=== PATIENT | male | born 1955 | race Caucasian/White ===

== ENCOUNTER → 2022-10-15 07:42 | Outpatient (CLI) | payer MEDICARE, OTHER, SELFPAY ==
[2022-10-15 08:47] LABS: Add Manual Diff / Slide Review NO; Basophils Absolute Auto 0 /uL (0-100); Basophils Percent Auto 0.8 % (0-2); Eosinophils Absolute Auto 100 /uL (0-450); Eosinophils Percent Auto 3.2 % (2-4); Hematocrit 44.6 % (41-53); Hemoglobin 15.7 g/dL (13.5-17.5); Lymphocytes Absolute Auto 1400 /uL (1100-4500); Lymphocytes Percent Auto 31.4 % (25-40); Mean Corpuscular HGB Conc 35.1 % (30-36); Mean Corpuscular Hemoglobin 32.3 PG (26-34); Mean Corpuscular Volume 91.9 fL (80-100); Monocytes Absolute Auto 500 /uL (0-900); Monocytes Percent Auto 11.2 % (3-14); Neutrophils Absolute Auto 2300 /uL (1500-7000); Neutrophils Percent Auto 53.4 % (50-75); Platelet Count 157 X10^3/uL (150-400); Red Blood Cell Count 4.85 X10^6/uL (4.5-5.9); Red Cell Distribution Width 12.9 % (11.6-14.8); White Blood Cell Count 4.4 X10^3/uL (4.5-11.0)
[2022-10-15 08:54] LABS: Alanine Aminotransferase 27 IU/L (<50); Albumin 3.9 g/dL (3.5-5.0); Albumin Globulin Ratio 1.5 (1.0-2.8); Alkaline Phosphatase 64 U/L (38-126); Aspartate Aminotransferase 30 IU/L (17-59); BUN Creatinine Ratio 18.1 (6-22); Bilirubin Total 0.8 mg/dL (0.2-1.3); Blood Urea Nitrogen 17 mg/dL (9-20); Calcium 9.3 mg/dL (8.4-10.2); Carbon Dioxide 27 mmol/L (22-32); Chloride 104 mmol/L (98-107); Cholesterol 206 mg/dL (140-199); Estimated Glomerular Filt Rate > 60 mL/min (>60); Globulin 2.6 g/dL (1.7-4.1); Glucose 101 mg/dL (80-110); HDL Cholesterol 54 mg/dL (40-60); HEMOLYSIS < 15 (0-50); LDL Cholesterol Calculated 136 mg/dL (<100); Potassium 4.5 mmol/L (3.4-5.1); Sodium 136 mmol/L (137-145); Total Protein 6.5 g/dL (6.3-8.2); Triglycerides 82 mg/dL (35-150)
[2022-10-15 09:23] LABS: Prostate Specific Antigen 3.83 ng/mL (0.10-4.00)
== END ==
PROVIDERS: PCP Family Medicine; Referring Provider Family Medicine; Visit Provider Family Medicine
DX: N52.9 Male erectile dysfunction, unspecified (principal); Z12.5 Encounter for screening for malignant neoplasm of prostate; Z13.9 Encounter for screening, unspecified; Z13.6 Encounter for screening for cardiovascular disorders
CPT/HCPCS: 36415; 80053; 80061; 84153; 85025; G0103

== ENCOUNTER 2023-03-23 09:38 | Day surgery (SDC) | payer MEDICARE, OTHER, SELFPAY ==
--- NOTE | 2023-03-23 | PATH_ITS ---
[facility] Accession Number: [id number] No. of containers..01 Tissue . 01 Material submitted: . colon - ASCENDING COLON POLYP . 01 Diagnosis: Ascending Colon Polyp, Biopsy: Tubular adenoma. PENDING SALE TO [facility] 03/30/2023 1509 Local . 01 Electronically signed: . Dorothy Fournier MD, Pathologist NPI- [id number] . 01 Gross description: . ASCENDING COLON POLYP: Received in formalin is 4 fragment(s) of martinez, soft tissue measuring 0.5 x 0.3 x 0.2 cm to 0.2 x 0.1 x 0.1 cm submitted entirely in 1 cassette(s) /AAY 03/24/2023 0514 Local . 01 Pathologist provided ICD-10: D12.2 . 01 CPT . 287607 Specimen Comment: A courtesy copy of this report has been sent to [phone] Performed at: 01 [facility] [address] [place] [address], [place], [place] [id number] MD London Mujica MD Phone: [phone]
[2023-03-23 09:54] VITALS: BP 138/95; PULSE 97; RESP 16; TEMP 36.1; O2SAT 98; BMI 36.2
--- NOTE | 2023-03-23 10:02 | PM.HP.1 ---
History of Present Illness History of Present Illness Date Patient Seen: 03/23/23 Time Patient Seen: 10:02 Chief complaint: SDC Narrative: Daniel is a 67-year-old man who is here for colonoscopy. He has had 2 colonoscopies in the past where polyps were removed. The first 1 was in 2017 and multiple polyps removed. The last 1 was in 2018 and only 1 tubular adenoma was found. It was less than 1 cm. His dad from colon cancer in his 90s. [facility] Medical History (Updated 10/24/22 @ 11:54 by Lawrence Russell DO) Actinic keratoses Anxiety BCC (basal cell carcinoma of skin) (~2014) BMI 36.0-36.9,adult Chicken pox (~1983) Cognitive changes Erectile dysfunction Herpes (~2015) Hx of basal cell carcinoma Hx of colonic polyps (~2016) Scalp laceration Surgical History (Updated 04/12/22 @ 21:26 by Fabiola Crawford) Anesthesia History of tonsillectomy (~1964) Family History (Updated 04/12/22 @ 21:37 by Fabiola Crawford) Father Cancer Mother Parkinson's disease Brother Parkinson's disease Grandfather History of heart attack Social History Smoking Status: Never smoker Meds Home Medications and Allergies Home Medications Medication Instructions Recorded Confirmed Type sodium,potassium,mag sulfates 17.5 See Rx Instructions PO .COMPLEX 02/02/23 Rx gram-3.13 gram-1.6 gram oral soln #354 mL (Suprep Bowel Prep Kit) sildenafil 50 mg tablet 50 mg PO DAILY #30 tabs 02/14/23 03/23/23 Rx Allergies Allergy/AdvReac Type Severity Reaction Status Date / Time No Known Drug Allergies Allergy Verified 03/23/23 09:52 Exam Const General: healthy appearing Assessment & Plan Assessment and plan (1) Hx of colonic polyps: Status: Acute Plan We reviewed the risks of colonoscopy for colon cancer screening and he would like to proceed.
[2023-03-23] MEDS: LACTATED RINGERS 1,000 ML 42 ML IV (10:05)
--- NOTE | 2023-03-23 10:30 | PM.OP.COLON ---
Operative Date/Time/Diagnoses Date of procedure: 03/23/23 Time of procedure: 10:30 Pre-op diagnosis: History of polyps Post-op diagnosis: same Procedure & Clinicians Study performed: Colonoscopies Same procedure as scheduled: Yes Surgeon: Janes Weaver Procedure Notes Procedure in detail: Surgeon: Janes Weaver MD Anesthesia: Helen Marley CRNA Procedure: The patient was brought to the endoscopy suite, placed in left lateral decubitus position. The patient was connected to monitoring devices. A time-out was performed. Sedation was administered. Once the patient was adequately sedated, a digital rectal exam was performed and was normal. The scope was then inserted and advanced to the cecum where the appendiceal orifice was identified and photographed. The scope was then slowly withdrawn over greater than 6 minutes. The mucosa was thoroughly inspected. There was a 7 mm polyp in the ascending colon removed with a cold snare. The scope was retroflexed in the rectum. No other abnormalities were seen. The scope was straightened and removed. The patient was awakened and brought to recovery. Scope withdrawal time: 10 minutes Sedation time: 13 minutes EBL: 2 mL Findings: 7 mm polyp in the ascending colon Post-procedure Disposition: PACU
[2023-03-23 10:32] VITALS: BP 106/73; PULSE 79; RESP 18; TEMP 36.1; O2SAT 90
[2023-03-23 10:37] VITALS: BP 110/81; PULSE 77; RESP 16; O2SAT 93
[2023-03-23 10:42] VITALS: BP 115/87; PULSE 85; RESP 12; O2SAT 94
[2023-03-23 10:47] VITALS: BP 119/82; PULSE 81; RESP 20; TEMP 36.6; O2SAT 94
[2023-03-23 10:48] VITALS: BP 126/89; PULSE 79; RESP 20; TEMP 36.1; O2SAT 94
== END 2023-03-23 11:14 | disposition home or self-care (01) ==
PROVIDERS: PCP Family Medicine; Referring Provider Surgery; Visit Provider Surgery
PROC: 0DJD8ZZ Inspection of Lower Intestinal Tract, Via Natural or Artificial Opening Endoscopic (ICD-10-PCS; CPT 45378; principal; 2023-03-23 10:45)
DX: Z12.11 Encounter for screening for malignant neoplasm of colon (principal); Z86.010 Personal history of colon polyps; D12.2 Benign neoplasm of ascending colon
CPT/HCPCS: 45385; J2704

== ENCOUNTER → 2023-11-27 11:44 | Outpatient (CLI) | payer MEDICARE, OTHER, SELFPAY ==
[2023-11-27 12:15] LABS: Add Manual Diff / Slide Review NO; Basophils Absolute Auto 0 /uL (0-100); Basophils Percent Auto 0.7 % (0-2); Eosinophils Absolute Auto 0 /uL (0-450); Eosinophils Percent Auto 0.6 % (2-4); Hematocrit 45.7 % (41-53); Lymphocytes Absolute Auto 1500 /uL (1100-4500); Mean Corpuscular HGB Conc 34.9 % (30-36); Mean Corpuscular Hemoglobin 32.9 PG (26-34); Mean Corpuscular Volume 94.1 fL (80-100); Monocytes Absolute Auto 400 /uL (0-900); Neutrophils Absolute Auto 3800 /uL (1500-7000); Neutrophils Percent Auto 65.7 % (50-75); Platelet Count 204 X10^3/uL (150-400); Red Blood Cell Count 4.86 X10^6/uL (4.5-5.9); Red Cell Distribution Width 13.4 % (11.6-14.8); White Blood Cell Count 5.7 X10^3/uL (4.5-11.0)
[2023-11-27 12:31] LABS: BUN Creatinine Ratio 13.7 (6-22); Blood Urea Nitrogen 13 mg/dL (9-20); Calcium 9.6 mg/dL (8.4-10.2); Carbon Dioxide 23 mmol/L (22-32); Chloride 108 mmol/L (98-107); Cholesterol 214 mg/dL (140-199); Estimated Glomerular Filt Rate > 60 mL/min (>60); Glucose 88 mg/dL (80-110); HDL Cholesterol 53 mg/dL (40-60); HEMOLYSIS < 15 (0-50); LDL Cholesterol Calculated 141 mg/dL (<100); Potassium 4.2 mmol/L (3.4-5.1); Sodium 138 mmol/L (137-145); Triglycerides 102 mg/dL (35-150)
== END ==
PROVIDERS: PCP Family Medicine; Referring Provider Family Medicine; Visit Provider Family Medicine
DX: Z12.5 Encounter for screening for malignant neoplasm of prostate (principal); Z68.36 Body mass index [BMI] 36.0-36.9, adult; E78.5 Hyperlipidemia, unspecified
CPT/HCPCS: 36415; 80048; 80061; 85025; G0103

== ENCOUNTER → 2023-12-12 13:17 | Outpatient (CLI) | payer MEDICARE, OTHER, SELFPAY | PROVIDERS: PCP Family Medicine; Referring Provider Family Medicine; Visit Provider Family Medicine | DX: E78.5 Hyperlipidemia, unspecified (principal); R53.83 Other fatigue; R06.02 Shortness of breath | CPT/HCPCS: 94060; 94726; 94729 ==

== ENCOUNTER → 2024-01-26 08:45 | Outpatient (CLI) | payer MEDICARE, OTHER, SELFPAY ==
--- NOTE | 2024-01-26 08:47 | DI.MRI.S_ITS ---
PROCEDURE: MR PELVIC PROSTATE PROTOCOL INDICATIONS: Elevated PSA TECHNIQUE: Coronal HASTE, axial T1 FSE with fat saturation, 3-plane nonbreath-hold T2 FSE. After the administration of contrast, dynamic axial, delayed axial and coronal VIBE or 2-D FLASH with fat saturation through the pelvis. Diffusion weighted imaging and ADC was performed. COMPARISON: None. FINDINGS: Image quality: Diffusion weighted and dynamic contrast enhanced images are diagnostic. Prostate: Gland size is 4.0 x 5.2 x 4.6 cm; ellipsoid gland volume is 49.8 mL. Given PSA of 7.4, PSA density is 0.15. There is slightly heterogeneous signal throughout transition and peripheral zone as well as several patchy areas of minimal diffusion-weighted hyperintensity without definite ADC hypointensity. Mildly heterogeneous enhancement without focal hyperemia. Genitourinary system: The urinary bladder is distended and only partially imaged on the current study. There is marked right hydroureter and a large intravesicular ureterocele. The left ureter and UVJ are not well seen. The vesicourethral junction is likely displaced to the left. No definite associated enhancing mass within the urinary bladder. Bowel and peritoneum: No pathologic free pelvic fluid. Inferior colon and small bowel loops are normal in caliber. Mild sigmoid diverticulosis. Nodes and vessels: No pelvic or inguinal adenopathy by size criteria. Iliac vessels are normal in caliber. Soft tissues: No inguinal hernias. Bones: Marrow demonstrates normal overall signal, without lesions to suggest metastases. IMPRESSION: No definite PI-RADS four or five lesion. No pelvic lymphadenopathy by size criteria. No aggressive osseous abnormality. Obstructing right intravesicular ureterocele and marked right hydroureter. Further imaging such as CT IVP may be helpful for further characterization. Dictated by: Gala Zarco M.D. on 01/26/2024 at 11:12 Approved by: Gala Zarco M.D. on 01/26/2024 at 11:49
== END ==
LOC: MRI 08:46
PROVIDERS: PCP Family Medicine; Referring Provider Urology; Visit Provider Urology
DX: N28.89 Other specified disorders of kidney and ureter (principal); R97.20 Elevated prostate specific antigen [PSA]
CPT/HCPCS: 72197; A9579

== ENCOUNTER → 2024-03-11 11:48 | Outpatient (CLI) | payer MEDICARE, OTHER, SELFPAY ==
[2024-03-11 12:37] LABS: Estimated Glomerular Filt Rate > 60 mL/min (>60)
== END ==
PROVIDERS: Radiology Diagnostic Radiology; PCP Family Medicine; Referring Provider Urology; Visit Provider Urology
DX: N28.89 Other specified disorders of kidney and ureter (principal)
CPT/HCPCS: 36415; 82565

== ENCOUNTER → 2024-03-12 08:14 | Outpatient (CLI) | payer MEDICARE, OTHER, SELFPAY ==
--- NOTE | 2024-03-12 09:00 | DI.CT.S_ITS ---
PROCEDURE: CT IVP A/P W/WO INDICATIONS: Evaluate incidentally found ureterocele and hydronephrosis TECHNIQUE: Optional 5 mm thick noncontrast images acquired from the diaphragm to the symphysis pubis. After the administration of intravenous contrast, 5 mm thick images acquired from the diaphragm to the symphysis pubis after a 10-minute delay. 2 mm thick coronal and sagittal reformats were then performed of the kidneys and ureters. For radiation dose reduction, the following was used: automated exposure control, adjustment of mA and/or kV according to patient size. COMPARISON: [facility], MR, MR PELVIC PROSTATE PROTOCOL, 01/26/2024, 9:12. FINDINGS: Image quality: Diagnostic. Kidneys and Ureters: Both kidneys are normal in size and enhance symmetrically. Bilateral duplicated renal collecting systems. There is markedly dilated ureter to the right upper pole moiety with hydronephrosis and atrophy of the right superior pole renal cortex. No contrast opacification is seen within the dilated right ureter. Some dependent calcifications are seen distally. A prominent ureterocele is present at the right posterior bladder. Right inferior pole renal moiety demonstrates abnormal contrast opacification of the calices and ureter with orthotopic insertion. No left hydronephrosis. Left-sided calices and ureters are normal in size without filling defects. Both ureters insert onto the posterior lateral bladder. without hydronephrosis or nephrolithiasis. No perinephric fat stranding. There is normal bilateral renal enhancement. Renal calyces appear normal in morphology when filled with contrast. Opacified portions of both ureters demonstrate normal caliber Bladder: Bladder wall thickness is normal. No calcified bladder stones. OTHER: Lower chest: Unremarkable. Liver: No solid mass. A benign appearing 1.1 cm cyst is seen in segment 4B. Gallbladder: No radiopaque gallstones or wall thickening. Biliary ducts: No biliary dilation. Pancreas: No ductal dilation. Spleen: Size is within normal limits. Adrenal Glands: No adrenal nodules. Stomach and Bowel: A few scattered diverticula are seen in the colon without signs of acute diverticulitis. Normal appendix. Small bowel loops and stomach are unremarkable. Peritoneum: No abnormal intraperitoneal fluid. No free air. Ventral Wall: No hernia. Abdominal Nodes: No retroperitoneal or mesenteric adenopathy by size criteria. Vessels: Aorta and inferior vena cava are normal in size. PELVIS: Pelvic Organs: No significant abnormality. Better evaluated on recent prior prostate MRI. Pelvic Nodes: No enlarged lymph nodes. Miscellaneous: Small fat containing left inguinal hernia. Bones: No aggressive osseous abnormality. Moderate severe degenerative changes are seen in the hips. Multilevel degenerative changes in the included spine. IMPRESSION: 1. No suspicious urothelial mass. 2. 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 3. Markedly dilated ureter to the right upper pole moiety with chronic atrophy of the overlying renal parenchyma. No contrast material is seen within the dilated right upper pole ureter. A large ureterocele projects into the bladder at the distal insertion. Normal right inferior pole moiety parenchymal thickness without hydronephrosis. Approved by: Yuval Romero M.D. on 03/12/2024 at 12:09
== END ==
LOC: CT 08:15
PROVIDERS: PCP Family Medicine; Referring Provider Urology; Visit Provider Urology
DX: N28.89 Other specified disorders of kidney and ureter (principal); Q62.5 Duplication of ureter; N28.82 Megaloureter; N13.30 Unspecified hydronephrosis; K57.90 Diverticulosis of intestine, part unspecified, without perforation or abscess without bleeding; K40.90 Unilateral inguinal hernia, without obstruction or gangrene, not specified as recurrent
CPT/HCPCS: 74178; Q9967

== ENCOUNTER → 2024-05-24 12:25 | Outpatient (CLI) | payer MEDICARE, OTHER, SELFPAY ==
[2024-05-24 15:08] LABS: BUN Creatinine Ratio 20.2 (6-22); Blood Urea Nitrogen 22 mg/dL (9-20); Calcium 9.6 mg/dL (8.4-10.2); Carbon Dioxide 28 mmol/L (22-32); Chloride 107 mmol/L (98-107); Estimated Glomerular Filt Rate > 60 mL/min (>60); Glucose 98 mg/dL (80-110); HEMOLYSIS < 15 (0-50); Potassium 4.3 mmol/L (3.4-5.1); Sodium 140 mmol/L (137-145)
[2024-05-26 08:40] LABS: PSA Free % 12.7 % (.); PSA, Total 8.9 ng/mL (0.0-4.0)
== END ==
PROVIDERS: PCP Family Medicine; Referring Provider Urology; Visit Provider Urology
DX: N28.89 Other specified disorders of kidney and ureter (principal); N13.30 Unspecified hydronephrosis; R97.20 Elevated prostate specific antigen [PSA]
CPT/HCPCS: 36415; 80048; 84153; 84154

== ENCOUNTER → 2024-07-15 10:22 | Outpatient (CLI) | payer MEDICARE, OTHER, SELFPAY ==
[2024-07-16 07:08] LABS: PSA Free % 14.1 % (.); PSA, Total 10.5 ng/mL (0.0-4.0)
== END ==
PROVIDERS: PCP Family Medicine; Referring Provider Urology; Visit Provider Urology
DX: R97.20 Elevated prostate specific antigen [PSA] (principal)
CPT/HCPCS: 36415; 84153; 84154

== ENCOUNTER → 2024-08-22 10:25 | Outpatient (CLI) | payer MEDICARE, OTHER, SELFPAY ==
[2024-08-22 11:34] LABS: Add Manual Diff / Slide Review NO; Basophils Absolute Auto 100 /uL (0-100); Basophils Percent Auto 1.3 % (0-2); Eosinophils Absolute Auto 100 /uL (0-450); Hematocrit 44.7 % (41-53); Hemoglobin 15.2 g/dL (13.5-17.5); Lymphocytes Absolute Auto 1200 /uL (1100-4500); Lymphocytes Percent Auto 26.3 % (25-40); Mean Corpuscular HGB Conc 34.1 % (30-36); Mean Corpuscular Hemoglobin 32.5 PG (26-34); Mean Corpuscular Volume 95.3 fL (80-100); Monocytes Absolute Auto 400 /uL (0-900); Monocytes Percent Auto 8.8 % (3-14); Neutrophils Absolute Auto 2700 /uL (1500-7000); Neutrophils Percent Auto 60.6 % (50-75); Platelet Count 185 X10^3/uL (150-400); Red Blood Cell Count 4.69 X10^6/uL (4.5-5.9); Red Cell Distribution Width 14.4 % (11.6-14.8); White Blood Cell Count 4.5 X10^3/uL (4.5-11.0)
[2024-08-22 11:51] LABS: Alanine Aminotransferase 33 IU/L (<50); Albumin 4.4 g/dL (3.5-5.0); Albumin Globulin Ratio 2.1 (1.0-2.8); Alkaline Phosphatase 59 U/L (38-126); Aspartate Aminotransferase 49 IU/L (17-59); BUN Creatinine Ratio 8.8 (6-22); Blood Urea Nitrogen 12 mg/dL (9-20); Carbon Dioxide 26 mmol/L (22-32); Chloride 102 mmol/L (98-107); Cholesterol 225 mg/dL (140-199); Estimated Glomerular Filt Rate 57 mL/min (>60); Globulin 2.1 g/dL (1.7-4.1); Glucose 71 mg/dL (80-110); HDL Cholesterol 65 mg/dL (40-60); HEMOLYSIS < 15 (0-50); LDL Cholesterol Calculated 145 mg/dL (<100); Potassium 5.3 mmol/L (3.4-5.1); Sodium 136 mmol/L (137-145); Total Protein 6.5 g/dL (6.3-8.2); Triglycerides 73 mg/dL (35-150)
[2024-08-23 11:40] LABS: PSA Free % 13.9 % (.); PSA, Total 10.2 ng/mL (0.0-4.0)
== END ==
LOC: LAB 10:26
PROVIDERS: PCP Family Medicine; Referring Provider Urology; Visit Provider Urology
DX: R97.20 Elevated prostate specific antigen [PSA] (principal); E78.5 Hyperlipidemia, unspecified; Z71.3 Dietary counseling and surveillance; Z68.36 Body mass index [BMI] 36.0-36.9, adult
CPT/HCPCS: 36415; 80053; 80061; 84153; 84154; 85025

== ENCOUNTER → 2024-09-16 10:00 | Outpatient (CLI) | payer MEDICARE, OTHER, SELFPAY ==
--- NOTE | 2024-09-16 10:01 | DI.CT.S_ITS ---
PROCEDURE: CT ABDOMEN PELVIS WO/W CON INDICATIONS: ureterocele TECHNIQUE: Optional 5 mm thick noncontrast images acquired from the diaphragm to the symphysis pubis. After the administration of intravenous contrast, 5 mm thick images acquired from the diaphragm to the symphysis pubis after a 10-minute delay. 2 mm thick coronal and sagittal reformats were then performed of the kidneys and ureters. For radiation dose reduction, the following was used: automated exposure control, adjustment of mA and/or kV according to patient size. COMPARISON: Located [facility], CT, CT IVP A/P W/WO, 03/12/2024, 8:24. FINDINGS: Image quality: Diagnostic. Kidneys and Ureters: Kidneys enhance symmetric. Bilateral duplicated renal collecting systems. The presume right kidney upper pole moiety is atrophic due to chronic dilatation. The right kidney upper pole moiety renal pelvis and ureter are massively dilated and there is a large right ureterocele measuring 7.3 x 5.7 cm, (4/115), similar. The 2nd right renal collecting system is not dilated and there is no hydroureter. The left renal collecting system is not dilated and there is no significant hydroureter. No solid renal mass. No kidney stones. Bladder: Large right ureteral seal is described above. No bladder wall thickening is appreciated. No bladder stone. OTHER: Lower chest: Dependent atelectasis. Liver: No solid mass. Small cyst. Gallbladder: No radiopaque gallstones or wall thickening. Biliary ducts: No biliary dilation. Pancreas: No ductal dilation. Spleen: Size is within normal limits. Adrenal Glands: No adrenal nodules. Stomach and Bowel: Normal colonic caliber, without significant wall thickening. Normal appendix. Peritoneum: No abnormal intraperitoneal fluid. No free air. Ventral Wall: Tiny umbilical hernia. Abdominal Nodes: No retroperitoneal or mesenteric adenopathy by size criteria. Vessels: Aorta and inferior vena cava are normal in size. PELVIS: Pelvic Organs: Prostatomegaly. Pelvic Nodes: No enlarged lymph nodes. Miscellaneous: No inguinal hernias are seen. Bones: No aggressive osseous abnormality. Anterolisthesis of L5 on S1 measuring 1 cm. Bilateral L5 pars defect. IMPRESSION: 1. Large right ureterocele measuring 7.3 cm is similar in size. Chronic markedly dilated right hydroureter and associated dilated collecting system. 2. Bilateral renal collecting system are duplicated. The other ureters are not dilated. 3. No solid renal mass. No kidney stones. 4. Prostatomegaly. Dictated by: Enrique Alston M.D. on 09/16/2024 at 15:47 Approved by: Enrique Alston M.D. on 09/16/2024 at 16:01
== END ==
LOC: CT 10:01
PROVIDERS: PCP Family Medicine; Referring Provider Urology; Visit Provider Urology
DX: N28.89 Other specified disorders of kidney and ureter (principal); N13.39 Other hydronephrosis; N40.0 Benign prostatic hyperplasia without lower urinary tract symptoms; K76.89 Other specified diseases of liver; M43.17 Spondylolisthesis, lumbosacral region; Z87.442 Personal history of urinary calculi
CPT/HCPCS: 74178; Q9967

== ENCOUNTER → 2024-09-26 10:03 | Outpatient (CLI) | payer MEDICARE, OTHER, SELFPAY ==
[2024-09-26 11:08] LABS: BUN Creatinine Ratio 14.3 (6-22); Blood Urea Nitrogen 19 mg/dL (9-20); Carbon Dioxide 23 mmol/L (22-32); Chloride 102 mmol/L (98-107); Estimated Glomerular Filt Rate 59 mL/min (>60); Glucose 94 mg/dL (80-110); HEMOLYSIS < 15 (0-50); Potassium 4.5 mmol/L (3.4-5.1); Sodium 135 mmol/L (137-145)
== END ==
PROVIDERS: PCP Family Medicine; Referring Provider Urology; Visit Provider Urology
DX: R79.89 Other specified abnormal findings of blood chemistry (principal)
CPT/HCPCS: 36415; 80048

== ENCOUNTER → 2024-09-27 15:15 | Outpatient (CLI) | payer MEDICARE, OTHER, SELFPAY ==
--- NOTE | 2024-09-27 15:17 | DI.NM.S_ITS ---
PROCEDURE: NM EXERCISE TREADMILL NON NUC COMPARISON: None. INDICATIONS: HERNANDEZ FINDINGS: Patient exercised per the standard Claus protocol. Total exercise time was 9 minutes and 51 seconds. Test was terminated secondary to fatigue. Maximal heart rate obtained is 175 bpm which is 114% of maximum predicted heart rate. Maximum blood pressure [place] 150/[place] [address]. ISAIAS -28%. 10.5 METS. No ischemic changes noted. No arrhythmias present. No chest pains voiced. Normal heart rate and blood pressure response to exercise. IMPRESSION: 1. Negative exercise treadmill stress test for ischemia. 2. Above average exercise tolerance. Dictated by: Man Denis M.D. on 09/27/2024 at 16:32 Approved by: Man Denis M.D. on 09/27/2024 at 16:33
== END ==
PROVIDERS: PCP Family Medicine; Referring Provider Internal Medicine Cardiovascular Disease; Visit Provider Internal Medicine Cardiovascular Disease
DX: R06.09 Other forms of dyspnea (principal)
CPT/HCPCS: 93017

== ENCOUNTER → 2024-09-29 09:13 | Outpatient (CLI) | payer MEDICARE, OTHER, SELFPAY ==
--- NOTE | 2024-09-29 09:15 | DI.ECHO.S_ITS ---
[facility] : : [id number] : [place] : : [id number] : : Phone: [phone] Echocardiogram Report + + :Name: NILS JARA Study Date: 09/29/2024 Height: 71 in : :[facility] ReadingLocation: Weight: 215 lb : : Gender: Male BSA: 2.2 m2 : :: 1955 Age: 68 yrs BP: 130/81 mmHg: :Reason For Study: DYPSNEA ON EXERTION : :Ordering Physician: JAVAN, : :SKYLER Performed By: Carloz Ferrara : :Referring: SKYLER MAHAJAN : + + Interpretation Summary 1) Normal left ventricular thickness and size with low normal systolic function (EF 50-55%). 2) Mid inferolateral wall is noted to be severely hypokinetic in the apical windows. 3) Upper normal right ventricular size with normal function. 4) No significant valvular abnormalities. 5) No prior Echo available for comparison. Procedure: A two-dimensional transthoracic echocardiogram with color flow and Doppler was performed. The study quality was technically good. There is no prior echocardiogram noted for this patient. The patient was in normal sinus rhythm during the exam. Left Ventricle: The left ventricle is normal in size. There is normal left ventricular wall thickness. There is no ventricular septal defect visualized. The ejection fraction is estimated to be 50-55%. Mid inferolateral wall is severely hypokinetic in the apical windows. Diastolic parameters suggest a relaxation abnormality of the left ventricle, consistent with probable normal filling pressures. Right Ventricle: The right ventricle is at the upper limits of normal in size. The right ventricular systolic function is normal. Atria: The left atrial size is normal. The right atrium is mildly dilated. There is no Doppler evidence for an interatrial shunt. The atrial septum is aneurysmal. Mitral Valve: The mitral valve leaflets appear normal. There is no evidence of stenosis, fluttering, or prolapse. There is trace mitral regurgitation. Aortic Valve: The aortic valve is trileaflet. The aortic valve opens well. There is no aortic valve stenosis. No aortic regurgitation is present. Tricuspid Valve: The tricuspid valve leaflets are thin and pliable. There is a trace or physiologic amount of tricuspid regurgitation. Pulmonic Valve: The pulmonic valve leaflets are thin and pliable; valve motion is normal. There is trace pulmonic regurgitation. Great Vessels: The aortic root is mildly dilated. The ascending aorta is mildly enlarged. The pulmonary artery is normal size. The IVC is of normal diameter and collapses greater than 50% with a sniff. This suggests a low right atrial pressure of 3 mm Hg. Pericardium/ Pleura There is no pericardial effusion. There is no pleural effusion. MMode/2D Measurements & Calculations LVIDd: 5.3 cm LVOT diam: 2.5 cm LVIDs: 3.7 cm Ao root diam: 3.8 cm FS: 30.6 % asc Aorta Diam: 3.7 cm EPSS: 0.81 cm IVSd: 0.92 cm LVPWd: 0.91 cm LV cristina. diameter/BSA (cm/m^2): 2.5 LV sys. diameter/BSA (cm/m^2): 1.7 LA A2 area: 21.7 cm2 RA long axis: 5.3 cm LA A4 area: 16.9 cm2 RA area: 19.5 cm2 LA length (vol): 5.6 cm RA vol: 60.9 ml LA vol: 55.7 ml RA : 28.0 ml/m2 LA vol index: 25.6 ml/m2 IVC diam: 1.9 cm RVD1 (basal): 4.0 cm RVD2 (mid): 3.3 cm TAPSE: 2.2 cm Doppler Measurements & Calculations Ao V2 max: 113.8 cm/sec LVOT Max Hayes: 98.3 cm/sec Ao V2 mean: 93.7 cm/sec LV V1 max P.9 mmHg Ao max P.2 mmHg LV V1 VTI: 19.8 cm Ao mean P.7 mmHg SUKHWINDER(I,D): 3.9 cm2 Ao V2 VTI: 23.9 cm SUKHWINDER(V,D): 4.1 cm2 sev ratio: 0.83 SUKHWINDER indexed to BSA (cm^2/m^2): 1.8 MV E max hayes: 44.6 cm/sec TR max hayes: 218.7 cm/sec MV A max hayes: 74.6 cm/sec TR max P.1 mmHg MV E/A: 0.60 PA V2 max: 75.3 cm/sec Med Peak E' Hayes: 5.5 cm/sec PA V2 mean: 53.0 cm/sec E/E' med: 8.1 PA mean P.3 mmHg Lat Peak E' Hayes: 5.9 cm/sec PA pr(Accel): 22.5 mmHg E/E' lat: 7.6 E/e' average: 7.8 MV dec time: 0.26 sec SV(LVOT): 93.5 ml Reading Physician:10:42 AM
== END ==
PROVIDERS: PCP Family Medicine; Referring Provider Internal Medicine Cardiovascular Disease; Visit Provider Internal Medicine Cardiovascular Disease
DX: R06.09 Other forms of dyspnea (principal); I77.89 Other specified disorders of arteries and arterioles; I77.810 Thoracic aortic ectasia
CPT/HCPCS: 93306

== ENCOUNTER → 2024-11-23 10:23 | Outpatient (CLI) | payer MEDICARE, OTHER, SELFPAY ==
[2024-11-23 11:35] LABS: BUN Creatinine Ratio 16.1 (6-22); Blood Urea Nitrogen 19 mg/dL (9-20); Calcium 9.8 mg/dL (8.4-10.2); Carbon Dioxide 28 mmol/L (22-32); Chloride 103 mmol/L (98-107); Estimated Glomerular Filt Rate > 60 mL/min (>60); Glucose 82 mg/dL (70-99); HEMOLYSIS < 15 (0-50); Sodium 137 mmol/L (137-145)
== END ==
PROVIDERS: PCP Family Medicine; Referring Provider Urology; Visit Provider Urology
DX: R97.20 Elevated prostate specific antigen [PSA] (principal)
CPT/HCPCS: 36415; 80048

== ENCOUNTER → 2025-02-14 12:27 | Outpatient (CLI) | payer MEDICARE, OTHER, SELFPAY ==
[2025-02-14 13:55] LABS: Blood Urea Nitrogen 25 mg/dL (9-20); Calcium 9.7 mg/dL (8.4-10.2); Carbon Dioxide 26 mmol/L (22-32); Chloride 102 mmol/L (98-107); Estimated Glomerular Filt Rate 58 mL/min (>60); Glucose 92 mg/dL (70-99); HEMOLYSIS < 15 (0-50); Potassium 4.4 mmol/L (3.4-5.1); Sodium 136 mmol/L (137-145)
[2025-02-14 14:25] LABS: Prostate Specific Antigen 12.5 ng/mL (0.10-4.00)
== END ==
PROVIDERS: PCP Family Medicine; Referring Provider Urology; Visit Provider Urology
DX: R97.20 Elevated prostate specific antigen [PSA] (principal); N40.1 Benign prostatic hyperplasia with lower urinary tract symptoms; N13.8 Other obstructive and reflux uropathy; N28.89 Other specified disorders of kidney and ureter
CPT/HCPCS: 36415; 80048; 84153

== ENCOUNTER → 2025-02-18 08:47 | Outpatient (CLI) | payer MEDICARE, OTHER, SELFPAY ==
[2025-02-18 10:47] LABS: Free T3, Triiodothyronine Free 2.91 pg/mL (2.77-5.27); Free T4, Direct Thyroxine 1.22 ng/dL (0.78-2.19)
[2025-02-18 11:01] LABS: Thyroid Stimulating Hormone 2.86 uIU/mL (0.47-4.68)
== END ==
PROVIDERS: PCP Family Medicine; Referring Provider Family Medicine; Visit Provider Family Medicine
DX: N52.9 Male erectile dysfunction, unspecified (principal); R53.83 Other fatigue
CPT/HCPCS: 36415; 84402; 84403; 84439; 84443; 84481

== ENCOUNTER → 2025-03-29 08:57 | Outpatient (CLI) | payer MEDICARE, OTHER, SELFPAY | PROVIDERS: PCP Family Medicine; Referring Provider Family Medicine; Visit Provider Family Medicine | DX: R79.89 Other specified abnormal findings of blood chemistry (principal) | CPT/HCPCS: 36415; 84402; 84403 ==

== ENCOUNTER → 2025-03-31 15:22 | Outpatient (CLI) | payer MEDICARE, OTHER, SELFPAY ==
[2025-03-31 15:50] LABS: Appearance Urine UA CLEAR; Bilirubin Urine UA NEGATIVE (NEGATIVE); Color Urine UA YELLOW; Glucose Urine UA NEGATIVE (Negative); Ketones Urine UA NEGATIVE (NEGATIVE); Leukocyte Esterase Urine UA NEGATIVE (NEGATIVE); Nitrite Urine UA NEGATIVE (Negative); Occult Blood Urine UA NEGATIVE (Negative); Protein Urine UA NEGATIVE (Negative); Specific Gravity Urine UA 1.015 (1.000-1.035); Urobilinogen Urine UA 0.2 E.U./dL (0.2); pH Urine UA 7.0 (4.5-8.0)
[2025-03-31 16:00] LABS: Culture Indicated Urine Cult Not Indicated
== END ==
PROVIDERS: PCP Family Medicine; Referring Provider Urology; Visit Provider Urology
DX: N40.1 Benign prostatic hyperplasia with lower urinary tract symptoms (principal); N13.8 Other obstructive and reflux uropathy
CPT/HCPCS: 81001

== ENCOUNTER → 2025-05-23 12:34 | Outpatient (CLI) | payer MEDICARE, OTHER, SELFPAY ==
[2025-05-23 14:19] LABS: Prostate Specific Antigen 12.9 ng/mL (0.10-4.00)
== END ==
PROVIDERS: PCP Family Medicine; Referring Provider Family Medicine; Visit Provider Urology
DX: N40.1 Benign prostatic hyperplasia with lower urinary tract symptoms (principal); R97.20 Elevated prostate specific antigen [PSA]; N13.8 Other obstructive and reflux uropathy
CPT/HCPCS: 36415; 84153

== ENCOUNTER → 2025-06-08 10:25 | Outpatient (CLI) | payer MEDICARE, OTHER, SELFPAY ==
--- NOTE | 2025-06-08 10:26 | DI.MRI.S_ITS ---
PROCEDURE: MR PELVIC PROSTATE PROTOCOL INDICATIONS: 69 y/o M w/ elevated PSA, please eval TECHNIQUE: Coronal HASTE, axial T1 FSE with fat saturation, 3-plane nonbreath-hold T2 FSE. After the administration of contrast, dynamic axial, delayed axial and coronal VIBE or 2-D FLASH with fat saturation through the pelvis. Diffusion weighted imaging and ADC was performed. COMPARISON: [facility], , MR PELVIC PROSTATE PROTOCOL, 01/26/2024, 9:12. FINDINGS: Image quality: Diffusion weighted and dynamic contrast enhanced images are diagnostic. Prostate: Gland size is 5 x 4.1 x 5.2 cm; ellipsoid gland volume is 55.4 mL. PSA density is elevated at 0.233 Transitional zone heterogenous nodules are present, either well encapsulated or mostly encapsulated, compatible with PI-RADS 1 or 2 likely BPH nodules. Left basal peripheral zone lesion measures 2.1 x 1.1 x 1.3 cm (10/25, 11/30, 10/06). This is increased in conspicuity compared to prior. Capsular indistinctness. This extends from the mid gland to the base. This extends partially to the right DWI score 5. T2 score 5. DCE positive. PI-RADS 5 Midline anterior apex transitional zone lesion measures 1.6 x 1.1 by 1.2 cm (11/01, 12/29, ). T2 score 5. DWI score 5. DCE positive. PI-RADS 5. This is also increased conspicuity compared to prior, with capsular indistinctness. Genitourinary system: Seminal vesicles appear clear. Dilated distal ureter and ureterocele again seen Bowel and peritoneum: No bowel obstruction. No ascites Nodes and vessels: No lymphadenopathy by size criteria. No aneurysmal artery identified Soft tissues: Cysts no significant pelvic wall abnormality Bones: No aggressive appearing osseous enhancement in the pelvis IMPRESSION: Increased conspicuity of PI-RADS 5 lesions in the mid gland to basal peripheral zone and apex anterior transitional zone/anterior fibromuscular stroma. Capsular indistinctness, suspicious for capsular involvement of both lesions. Seminal vesicles appear clear. No pelvic suspicious osseous enhancement or lymphadenopathy by size criteria. Consider prostate PET-CT given elevated PSA density Dictated by: Kevin Nur M.D. on 06/09/2025 at 7:53 Approved by: Kevin Nur M.D. on 06/09/2025 at 8:00
== END ==
LOC: MRI 10:26
PROVIDERS: PCP Family Medicine; Referring Provider Family Medicine; Visit Provider Urology
DX: N40.2 Nodular prostate without lower urinary tract symptoms (principal); R97.20 Elevated prostate specific antigen [PSA]; N28.82 Megaloureter; N28.89 Other specified disorders of kidney and ureter
CPT/HCPCS: 72197; A9579